=== PATIENT | male | born 1985 | race Hispanic/Latino ===

== ENCOUNTER 2023-03-11 22:30 | Inpatient (IN) | payer OTHER ==
[~2023-03-11] VITALS: Ht 177.8 cm; Wt 85.7 kg
[2023-03-11 23:06] LABS: EOSINOPHILS % (AUTO) 1.7 % (0.0-8.0); LYMPHOCYTES % (AUTO) 24.3 % (21.0-51.0); MEAN CORPUSCULAR HEMOGLOBIN 18.2 pg (27.0-33.0); MEAN CORPUSCULAR HGB CONC 27.9 g/dL (32.0-36.0); MEAN CORPUSCULAR VOLUME 65.2 fL (79-99); MONOCYTES % (AUTO) 12.2 % (3.0-13.0); NEUTROPHILS % (AUTO) 60.3 % (40.0-77.0); NUCLEATED RED BLOOD CELLS 0.5 % (0.0-0.19); PLATELET COUNT (AUTO) 369 K/uL (130-400); RED BLOOD CELL COUNT(AUTO) 3.13 MIL/uL (4.50-6.20); RED CELL DISTRIBUTION WIDTH 19.8 % (11.0-15.5); WHITE BLOOD COUNT (AUTO) 9.4 K/uL (4.8-10.8)
[2023-03-11 23:11] LABS: APPEARANCE,URINE CLEAR (CLEAR); BILIRUBIN,URINE NEGATIVE (NEGATIVE); COLOR,URINE YELLOW (YELLOW); GLUCOSE, URINE (UA) NEGATIVE (NEGATIVE); KETONES,URINE NEGATIVE (NEGATIVE); LEUKOCYTE ESTERASE ,URINE NEGATIVE Leu/uL (NEGATIVE); NITRATE,URINE NEGATIVE (NEGATIVE); OCCULT BLOOD,URINE NEGATIVE (NEGATIVE); PROTEIN,URINE NEGATIVE (NEGATIVE); UROBILINOGEN,URINE 0.2 mg/dL (0.2-1.0)
[2023-03-11 23:14] LABS: CREATININE 0.8 mg/dL (0.5-1.5)
[2023-03-11 23:17] LABS: HEMATOCRIT 20.4 % (42-54)
[2023-03-11 23:18] LABS: ALBUMIN 3.4 g/dL (3.5-5.0); TOTAL PROTEIN, SERUM 7.5 g/dL (6.0-8.3)
[2023-03-11 23:52] LABS: INR 1.24 (0.85-1.15); PROTHROMBIN TIME 13.4 SEC (9.6-11.6)
[2023-03-11 23:53] LABS: PARTIAL THROMBOPLASTIN TIME 29.3 SEC (26.3-35.5)
[2023-03-12] MEDS ORDERED: MAGNESIUM 2GM PREMIX 50ML 50 ML IV PRN
[2023-03-12] MEDS ORDERED: PANTOPRAZOLE 40 MG/VIAL IVP ONE
[2023-03-12] MEDS ORDERED: ACETAMINOPHEN 325 MG TAB PO PRN ×2
[2023-03-12] MEDS ORDERED: POTASSIUM CHLORIDE 20MEQ/100ML 100 ML IV PRN
[2023-03-12] MEDS ORDERED: OCTREOTIDE ACETATE 100 MCG/ML AMP IV ONE
[2023-03-12] MEDS ORDERED: POTASSIUM BICARB/CIT AC 25 MEQ TABLET.EFF PO ONE
[2023-03-12] MEDS ORDERED: MORPHINE 2 MG SYG IV PRN
[2023-03-12] MEDS ORDERED: ONDANSETRON 4MG INJ IV PRN
[2023-03-12 00:01] LABS: PLATELET MORPHOLOGY LARGE PLTS PRESENT
[2023-03-12] MEDS: 0.9%NACL 1000ML 1,000 ML IV SCH ×2 (00:48→17:08)
[2023-03-12] MEDS ORDERED: OCTREOTIDE ACETATE 200 MCG/ML 5 ML VIAL ONE (00:51)
[2023-03-12] MEDS: OCTREOTIDE ACETATE 1,250 MCG in 0.9% NACL 250ML 250 ML IV SCH (01:27)
[2023-03-12 05:48] LABS: BASOPHILS % (AUTO) 1.1 % (0.0-5.0); HEMATOCRIT 21.9 % (42-54); LYMPHOCYTES % (AUTO) 24.2 % (21.0-51.0); MEAN CORPUSCULAR HEMOGLOBIN 19.9 pg (27.0-33.0); MEAN CORPUSCULAR HGB CONC 29.2 g/dL (32.0-36.0); MEAN CORPUSCULAR VOLUME 68.2 fL (79-99); MONOCYTES % (AUTO) 13.4 % (3.0-13.0); NEUTROPHILS % (AUTO) 58.9 % (40.0-77.0); NUCLEATED RED BLOOD CELLS 0.2 % (0.0-0.19); PLATELET COUNT (AUTO) 343 K/uL (130-400); RED BLOOD CELL COUNT(AUTO) 3.21 MIL/uL (4.50-6.20); RED CELL DISTRIBUTION WIDTH 22.3 % (11.0-15.5); WHITE BLOOD COUNT (AUTO) 8.5 K/uL (4.8-10.8)
[2023-03-12 06:01] LABS: CREATININE 0.7 mg/dL (0.5-1.5); MAGNESIUM 1.1 mg/dL (1.80-2.40); PHOSPHORUS 4.2 mg/dL (2.5-4.9); POTASSIUM 4.2 mmol/L (3.5-5.1)
[2023-03-12 06:02] LABS: INR 1.27 (0.85-1.15); PROTHROMBIN TIME 13.7 SEC (9.6-11.6)
[2023-03-12] MEDS ORDERED: PANTOPRAZOLE 40 MG/VIAL IVP SCH (09:00)
[2023-03-12 12:49] LABS: HEMATOCRIT 23.8 % (42-54)
[2023-03-12] MEDS: PANTOPRAZOLE 40MG INJ 80 MG in 0.9%NACL 100ML 100 ML IVP SCH (15:28)
[2023-03-12] MEDS: AZITHROMYCIN 500MG+NS 250ML IVPB SCH (15:35)
[2023-03-12 17:57] LABS: HEMATOCRIT 24.2 % (42-54)
[2023-03-12] MEDS ORDERED: LACTULOSE 20 GM/30 ML UDCUP PO ONE (19:30)
[2023-03-12 21:30] VITALS: BP 129/81
[2023-03-12] MEDS: MAGNESIUM 2GM PREMIX 50ML 50 ML IV SCH (21:42)
[2023-03-12] MEDS ORDERED: OMEP20TA20 PO (22:00)
[2023-03-12 22:38] LABS: HEMATOCRIT 25.3 % (42-54)
[2023-03-12 23:36] VITALS: BP 127/83
[2023-03-13] VITALS (21 sets, daily range): BP systolic 122–145; BP diastolic 62–98
[2023-03-13] MEDS ORDERED: PEG 3350/NA SULF,BICARB,CL/KCL 4000 ML SOLN PO ONE (00:01)
[2023-03-13] MEDS: PANTOPRAZOLE 40MG INJ 80 MG in 0.9%NACL 100ML 100 ML IVP SCH ×3 (01:33→20:22)
[2023-03-13 05:11] LABS: HEMATOCRIT 23.3 % (42-54); MEAN CORPUSCULAR HEMOGLOBIN 20.5 pg (27.0-33.0); MEAN CORPUSCULAR HGB CONC 29.6 g/dL (32.0-36.0); MEAN CORPUSCULAR VOLUME 69.1 fL (79-99); NUCLEATED RED BLOOD CELLS 0.3 % (0.0-0.19); RED BLOOD CELL COUNT(AUTO) 3.37 MIL/uL (4.50-6.20); RED CELL DISTRIBUTION WIDTH 22.1 % (11.0-15.5)
[2023-03-13 05:25] LABS: CREATININE 0.7 mg/dL (0.5-1.5); MAGNESIUM 1.9 mg/dL (1.80-2.40); POTASSIUM 3.6 mmol/L (3.5-5.1); TOTAL PROTEIN, SERUM 6.7 g/dL (6.0-8.3)
[2023-03-13 08:14] LABS: HEMATOCRIT 23.8 % (42-54)
[2023-03-13] MEDS: 0.9%NACL 1000ML 1,000 ML IV SCH (09:36)
[2023-03-13] MEDS ORDERED: PROPOFOL 10 MG/ML 20ML VIAL IV ONE ×2 (12:45)
[2023-03-13] MEDS ORDERED: FENTANYL CITRATE PF 50 MCG/1 ML 2ML VIAL ONE (12:45)
[2023-03-13] MEDS ORDERED: LIDOCAINE PF 100MG/5ML (2%) SYRINGE 5ML ONE (12:46)
[2023-03-13 15:49] LABS: HEMATOCRIT 25.3 % (42-54)
[2023-03-13] MEDS: AZITHROMYCIN 500MG+NS 250ML IVPB SCH (16:01)
[2023-03-13] MEDS: HYDROCORTISONE 25 MG SUPPOSITORY PR SCH (22:00)
[2023-03-13] MEDS: MORPHINE 4 MG SYG IV PRN (22:06)
[2023-03-13] MEDS: OCTREOTIDE ACETATE 1,250 MCG in 0.9% NACL 250ML 250 ML IV SCH (22:06)
[2023-03-14] MEDS: 0.9%NACL 1000ML 1,000 ML IV SCH (02:00)
[2023-03-14] MEDS: MORPHINE 4 MG SYG IV PRN (03:47)
[2023-03-14] MEDS: PANTOPRAZOLE 40MG INJ 80 MG in 0.9%NACL 100ML 100 ML IVP SCH (03:47)
[2023-03-14 04:18] VITALS: BP 142/102
[2023-03-14 04:48] LABS: EOSINOPHILS % (AUTO) 1.9 % (0.0-8.0); HEMATOCRIT 25.4 % (42-54); LYMPHOCYTES % (AUTO) 17.9 % (21.0-51.0); MEAN CORPUSCULAR HEMOGLOBIN 20.3 pg (27.0-33.0); MEAN CORPUSCULAR HGB CONC 29.1 g/dL (32.0-36.0); MEAN CORPUSCULAR VOLUME 69.6 fL (79-99); MONOCYTES % (AUTO) 10.4 % (3.0-13.0); NEUTROPHILS % (AUTO) 68.4 % (40.0-77.0); PLATELET COUNT (AUTO) 349 K/uL (130-400); RED BLOOD CELL COUNT(AUTO) 3.65 MIL/uL (4.50-6.20); RED CELL DISTRIBUTION WIDTH 22.8 % (11.0-15.5); WHITE BLOOD COUNT (AUTO) 9.8 K/uL (4.8-10.8)
[2023-03-14 05:12] LABS: CREATININE 0.6 mg/dL (0.5-1.5); MAGNESIUM 1.8 mg/dL (1.80-2.40); PHOSPHORUS 3.6 mg/dL (2.5-4.9); POTASSIUM 3.3 mmol/L (3.5-5.1); TOTAL PROTEIN, SERUM 6.6 g/dL (6.0-8.3)
[2023-03-14] MEDS: MAGNESIUM 2GM PREMIX 50ML 50 ML IV SCH (05:48)
[2023-03-14] MEDS: KCL 20 MEQ ERTAB PO PRN ×3 (05:48→11:44)
[2023-03-14] MEDS ORDERED: POTASSIUM CHLORIDE 10% ELIXIR 20 MEQ/15 ML UDCUP PO PRN (06:00)
[2023-03-14] MEDS ORDERED: POTASSIUM CHLORIDE 20MEQ/100ML 100 ML IV PRN (06:00)
[2023-03-14 08:00] VITALS: BP 144/92
[2023-03-14] MEDS: PANTOPRAZOLE 40 MG TAB DR PO SCH (09:25)
[2023-03-14] MEDS: HYDROCORTISONE 25 MG SUPPOSITORY PR SCH ×2 (09:25→20:55)
[2023-03-14] MEDS ORDERED: LIDOCAINE HCL 2% VISCOUS 15 ML UDCUP PO PRN (11:00)
[2023-03-14] MEDS ORDERED: BENZOCAINE/MENTH/CETYLPYRD CL 1 EACH LOZENGE MM PRN (11:00)
[2023-03-14 12:00] VITALS: BP 129/89
[2023-03-14] MEDS: AZITHROMYCIN 500MG+NS 250ML IVPB SCH (15:17)
[2023-03-14 16:00] VITALS: BP 123/85
[2023-03-14 19:43] VITALS: BP 135/95
[2023-03-14 23:19] VITALS: BP 133/87
[2023-03-15 03:42] VITALS: BP 109/61
[2023-03-15 05:59] LABS: EOSINOPHILS % (AUTO) 1.7 % (0.0-8.0); HEMATOCRIT 27.7 % (42-54); LYMPHOCYTES % (AUTO) 19.5 % (21.0-51.0); MEAN CORPUSCULAR HEMOGLOBIN 20.3 pg (27.0-33.0); MEAN CORPUSCULAR HGB CONC 28.5 g/dL (32.0-36.0); MEAN CORPUSCULAR VOLUME 71.2 fL (79-99); MONOCYTES % (AUTO) 9.7 % (3.0-13.0); NEUTROPHILS % (AUTO) 67.6 % (40.0-77.0); NUCLEATED RED BLOOD CELLS 0.2 % (0.0-0.19); PLATELET COUNT (AUTO) 455 K/uL (130-400); RED BLOOD CELL COUNT(AUTO) 3.89 MIL/uL (4.50-6.20); RED CELL DISTRIBUTION WIDTH 23.9 % (11.0-15.5); WHITE BLOOD COUNT (AUTO) 12.6 K/uL (4.8-10.8)
[2023-03-15 06:22] LABS: ALBUMIN 3.3 g/dL (3.5-5.0); CREATININE 0.7 mg/dL (0.5-1.5); POTASSIUM 4.2 mmol/L (3.5-5.1); TOTAL PROTEIN, SERUM 7.3 g/dL (6.0-8.3)
[2023-03-15 08:00] VITALS: BP 132/85
[2023-03-15] MEDS: HYDROCORTISONE 25 MG SUPPOSITORY PR SCH ×2 (09:47→19:50)
[2023-03-15] MEDS: PANTOPRAZOLE 40 MG TAB DR PO SCH (09:47)
[2023-03-15 12:00] VITALS: BP 126/79
[2023-03-15] MEDS: AZITHROMYCIN 500MG+NS 250ML IVPB SCH (15:08)
[2023-03-15 15:59] VITALS: BP 124/73
[2023-03-15 20:00] VITALS: BP 117/71
[2023-03-16] VITALS: BP 120/75
[2023-03-16 04:00] VITALS: BP 118/76
[2023-03-16 04:43] LABS: BASOPHILS % (AUTO) 0.9 % (0.0-5.0); EOSINOPHILS % (AUTO) 1.1 % (0.0-8.0); LYMPHOCYTES % (AUTO) 16.5 % (21.0-51.0); MEAN CORPUSCULAR HEMOGLOBIN 20.3 pg (27.0-33.0); MEAN CORPUSCULAR HGB CONC 28.5 g/dL (32.0-36.0); MEAN CORPUSCULAR VOLUME 71.1 fL (79-99); MONOCYTES % (AUTO) 9.6 % (3.0-13.0); NEUTROPHILS % (AUTO) 71.5 % (40.0-77.0); PLATELET COUNT (AUTO) 475 K/uL (130-400); RED CELL DISTRIBUTION WIDTH 23.9 % (11.0-15.5); WHITE BLOOD COUNT (AUTO) 12.6 K/uL (4.8-10.8)
[2023-03-16 05:13] LABS: ALBUMIN 3.3 g/dL (3.5-5.0); CREATININE 0.7 mg/dL (0.5-1.5); POTASSIUM 3.5 mmol/L (3.5-5.1); TOTAL PROTEIN, SERUM 7.4 g/dL (6.0-8.3)
[2023-03-16 08:00] VITALS: BP 122/73
[2023-03-16] MEDS: HYDROCORTISONE 25 MG SUPPOSITORY PR SCH ×2 (09:19→21:30)
[2023-03-16] MEDS: PANTOPRAZOLE 40 MG TAB DR PO SCH (09:19)
[2023-03-16 12:00] VITALS: BP 121/70
[2023-03-16] MEDS: KCL 20 MEQ ERTAB PO PRN ×2 (14:14→16:54)
[2023-03-16] MEDS: AZITHROMYCIN 500MG+NS 250ML IVPB SCH (14:14)
[2023-03-16 16:00] VITALS: BP 130/71
[2023-03-16 20:00] VITALS: BP 127/77
[2023-03-17] VITALS (7 sets, daily range): BP systolic 119–132; BP diastolic 64–80
[2023-03-17 08:44] LABS: BASOPHILS % (AUTO) 0.6 % (0.0-5.0); EOSINOPHILS % (AUTO) 0.7 % (0.0-8.0); HEMATOCRIT 27.2 % (42-54); LYMPHOCYTES % (AUTO) 13.3 % (21.0-51.0); MEAN CORPUSCULAR HEMOGLOBIN 20.2 pg (27.0-33.0); MEAN CORPUSCULAR VOLUME 69.6 fL (79-99); MONOCYTES % (AUTO) 5.3 % (3.0-13.0); NEUTROPHILS % (AUTO) 79.6 % (40.0-77.0); PLATELET COUNT (AUTO) 513 K/uL (130-400); RED BLOOD CELL COUNT(AUTO) 3.91 MIL/uL (4.50-6.20); RED CELL DISTRIBUTION WIDTH 23.9 % (11.0-15.5); WHITE BLOOD COUNT (AUTO) 14.1 K/uL (4.8-10.8)
[2023-03-17 09:09] LABS: ALBUMIN 3.4 g/dL (3.5-5.0); CREATININE 0.6 mg/dL (0.5-1.5); MAGNESIUM 1.9 mg/dL (1.80-2.40); POTASSIUM 4.1 mmol/L (3.5-5.1); TOTAL PROTEIN, SERUM 7.7 g/dL (6.0-8.3)
[2023-03-17] MEDS: PANTOPRAZOLE 40 MG TAB DR PO SCH (09:29)
[2023-03-17] MEDS: HYDROCORTISONE 25 MG SUPPOSITORY PR SCH ×2 (09:29→20:16)
[2023-03-17] MEDS ORDERED: CEFTRIAXONE 2GM VIAL IVPB SCH (12:00)
[2023-03-17] MEDS ORDERED: CEFTRIAXONE 1G VIAL IVPB SCH (12:30)
[2023-03-17] MEDS: AZITHROMYCIN 500MG+NS 250ML IVPB SCH (14:45)
[2023-03-18 03:45] VITALS: BP 114/72
[2023-03-18 04:34] LABS: HEMATOCRIT 25.7 % (42-54); MEAN CORPUSCULAR HEMOGLOBIN 20.2 pg (27.0-33.0); MEAN CORPUSCULAR HGB CONC 29.2 g/dL (32.0-36.0); MEAN CORPUSCULAR VOLUME 69.3 fL (79-99); RED BLOOD CELL COUNT(AUTO) 3.71 MIL/uL (4.50-6.20); RED CELL DISTRIBUTION WIDTH 23.6 % (11.0-15.5); WHITE BLOOD COUNT (AUTO) 14.4 K/uL (4.8-10.8)
[2023-03-18 04:47] LABS: ALBUMIN 3.3 g/dL (3.5-5.0); BILIRUBIN,DIRECT 0.7 mg/dL (0.0-0.3); TOTAL PROTEIN, SERUM 7.5 g/dL (6.0-8.3)
[2023-03-18 07:49] VITALS: BP 120/75
[2023-03-18] MEDS: PANTOPRAZOLE 40 MG TAB DR PO SCH (08:37)
[2023-03-18] MEDS: HYDROCORTISONE 25 MG SUPPOSITORY PR SCH (08:37)
[2023-03-18 11:34] VITALS: BP 129/77
[2023-03-18] MEDS ORDERED: LEVO-70 PO (12:50)
[2023-03-18] MEDS ORDERED: PANT40TA54 PO (12:50)
== END 2023-03-18 13:40 | disposition home or self-care (01) | DRG 368 ==
LOC: EDH 22:30 → EDHIP 22:31 → 4DH 03-12 21:30
PROVIDERS: ADMIT Internal Medicine; ATTEND Internal Medicine
PROC: 30233N1 Transfusion of Nonautologous Red Blood Cells into Peripheral Vein, Percutaneous Approach (ICD-10-PCS; 2023-03-12)
PROC: 0DBP8ZZ Excision of Rectum, Via Natural or Artificial Opening Endoscopic (ICD-10-PCS; principal; 2023-03-13)
PROC: 06L38CZ Occlusion of Esophageal Vein with Extraluminal Device, Via Natural or Artificial Opening Endoscopic (ICD-10-PCS; 2023-03-13)
DX: K21.01 Gastro-esophageal reflux disease with esophagitis, with bleeding (principal); K29.01 Acute gastritis with bleeding; D62 Acute posthemorrhagic anemia; K76.6 Portal hypertension; Z20.822 Contact with and (suspected) exposure to COVID-19; R18.8 Other ascites; I85.10 Secondary esophageal varices without bleeding; K31.89 Other diseases of stomach and duodenum; F10.21 Alcohol dependence, in remission; K76.0 Fatty (change of) liver, not elsewhere classified; K40.90 Unilateral inguinal hernia, without obstruction or gangrene, not specified as recurrent; K64.8 Other hemorrhoids; E87.6 Hypokalemia; K40.20 Bilateral inguinal hernia, without obstruction or gangrene, not specified as recurrent; B19.20 Unspecified viral hepatitis C without hepatic coma; Z80.7 Family history of other malignant neoplasms of lymphoid, hematopoietic and related tissues; Z82.0 Family history of epilepsy and other diseases of the nervous system; Z83.3 Family history of diabetes mellitus
CPT/HCPCS: 36415; 43244; 45380; 74176; 76700; 76870; 80048; 80053; 80076; 81003; 82270; 83690; 83735; 84100; 85007; 85014; 85018; 85025; 85027; 85610; 85730; 86850; 86900; 86901; 86923; 87040; 87520; 87522; 87635; 93005; A4606; C9113; G0378; J0456; J0696; J2001; J2270; J2354; J2704; J3010; J3475; J7030; J7050; P9016

== ENCOUNTER 2023-07-09 23:55 | Emergency (ER) | payer OTHER ==
[~2023-07-09] VITALS: Ht 177.8 cm; Wt 93.0 kg
[~2023-07-09 23:55] MED LIST: LEVO-70 PO; PANT40TA54 PO
[2023-07-09 23:56] VITALS: BP 132/83; PULSE 74; RESP 20
== END 2023-07-10 01:30 | disposition left against medical advice (07) ==
LOC: EDH 23:55
DX: K74.60 Unspecified cirrhosis of liver (principal); F10.20 Alcohol dependence, uncomplicated; F17.200 Nicotine dependence, unspecified, uncomplicated; I10 Essential (primary) hypertension; Z79.899 Other long term (current) drug therapy
CPT/HCPCS: 99281

== ENCOUNTER 2025-10-30 10:36 | Emergency (ER) | payer SELFPAY ==
[~2025-10-30] VITALS: Ht 177.8 cm; Wt 83.9 kg
[2025-10-30 11:43] LABS: IMMATURE GRANULOCYTE ABSOLUTE 0.00 K/uL (0-1); NUCLEATED RED BLOOD CELLS 0.0 % (0.0-0.19); PLATELET COUNT (AUTO) 52 K/uL (130-400); RED BLOOD CELL COUNT(AUTO) 4.73 MIL/uL (4.50-6.20); RED CELL DISTRIBUTION WIDTH 14.9 % (11.0-15.5); WHITE BLOOD COUNT (AUTO) 3.7 K/uL (4.8-10.8)
[2025-10-30 11:53] LABS: CREATINE KINASE, TOTAL 160.0 U/L (21-232); CREATININE 0.6 mg/dL (0.5-1.3); GLOMERULAR FILTR. RATE CALC 127.0 mL/min (>90); GLUCOSE,RANDOM 114.0 mg/dL (70-105); SODIUM SERUM 139.0 mmol/L (136-145); UREA NITROGEN, BLOOD 1.0 mg/dL (7-18)
[2025-10-30 11:58] LABS: AMPHET/METH SCREEN,URINE NEGATIVE (NEGATIVE); BARBITURATE SCREEN, URINE NEGATIVE (NEGATIVE); CANNABINOID SCREEN,URINE POSITIVE (NEGATIVE); COCAINE SCREEN,URINE NEGATIVE (NEGATIVE)
--- NOTE | 2025-10-30 12:00 | HMCIMG ---
EXAM: CR CHEST, 1 VIEW CLINICAL HISTORY: Syncope. COMPARISON: None provided. FINDINGS: LUNGS: No focal mass, lobar consolidation, or other acute pulmonary parenchymal abnormality is identified. PLEURAL SPACES: No pleural effusion or pneumothorax. MEDIASTINUM: Cardiac size and mediastinal contours are within normal limits. BONES: Displaced fractures of the left third, fourth, fifth, and sixth ribs are identified. These are presumed chronic in nature. Fixation hardware is present involving the left seventh and eighth ribs. No aggressive-appearing osseous lesion is seen.IMPRESSION: 1. No acute cardiopulmonary findings. 2. Displaced fractures of left 3rd, 4th, 5th, and 6th ribs, presumed chronic. Fixation hardware in left 7th and 8th ribs. /[place]
[2025-10-30 12:03] LABS: ALCOHOL, BLOOD 365.0 mg/dL (0-10)
[2025-10-30 12:18] LABS: PLATELET MORPHOLOGY COMMENT DECREASED
[2025-10-30] MEDS: 0.9%NACL 1000ML 1,000 ML IV ONE (12:47)
--- NOTE | 2025-10-30 13:13 | HMCIMG ---
EXAM: CT Head and Facial bones Without IV contrast. CLINICAL HISTORY: head injury TECHNIQUE: Axial computed tomography images were acquired of the head/brain, and of the facial bones, without intravenous contrast. Sagittal and coronal reformatted images were obtained of the facial bones. COMPARISON: None provided. FINDINGS: BRAIN No evidence of acute hemorrhage. No mass lesion. No CT evidence for acute territorial infarct. No midline shift or extra-axial collections. VENTRICLES: No hydrocephalus. ORBITS: The orbits are unremarkable. SINUSES AND MASTOIDS: The paranasal sinuses and mastoid air cells are clear. SOFT TISSUES: Right supra orbital soft tissue hematoma. The retro-orbital fat is preserved. BONES: No acute fracture is evident on images of the facial bones, or the head. MISCELLANEOUS: There is swelling of the upper lip on the left IMPRESSION: Right supra orbital soft tissue hematoma. The retro-orbital fat is preserved. There is swelling of the upper lip on the left No evidence of sinus fracture. /[place]
[2025-10-30] MEDS: MAGNESIUM 2GM PREMIX 50ML 50 ML IV STA (13:36)
[2025-10-30 14:00] VITALS: BP 137/76; PULSE 85; RESP 18; TEMP 97.9; O2SAT 97
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
--- NOTE | 2025-10-30 14:39 | NUR ---
pt left ama eloped from hallway bed pt was not medically cleared by er physician.
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
--- NOTE | 2025-10-30 18:07 | EKG ---
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 : 1985 Requested By: CRISTIAN DAVALOS Order Number: [id number] Reading MD: Isidro Chowdary Measurements Intervals [place] Rate: 74 P: 0 DE: 66 QRS: 13 QRSD: 116 T: 59 QT: 393 QTc: 438 Interpretive Statements Sinus rhythm Nonspecific intraventricular conduction delay Low voltage, extremity leads ST elev, probable normal early repol pattern Compared to ECG 03/12/2023 05:19:17 Intraventricular conduction delay now present ST (T wave) deviation now present Electronically Signed On 10-30-2025 21:53:02 TELEVISION REPORTER by Isidro Chowdary Please click the below link to view image of tracing.
== END 2025-10-30 14:45 | disposition left against medical advice (07) ==
LOC: EDH 10:36
DX: S00.12XA Contusion of left eyelid and periocular area, initial encounter (principal); E87.6 Hypokalemia; F10.129 Alcohol abuse with intoxication, unspecified; R55 Syncope and collapse; F17.200 Nicotine dependence, unspecified, uncomplicated; Z79.899 Other long term (current) drug therapy; W18.39XA Other fall on same level, initial encounter; Y93.89 Activity, other specified; Y92.89 Other specified places as the place of occurrence of the external cause; Y99.8 Other external cause status; Y90.8 Blood alcohol level of 240 mg/100 ml or more
CPT/HCPCS: 99285; 70450; 96365; 71045; 96375; 82550; 84484; 80048; 80305; 85025; 85378; 36415; 70486; 96368; 93005; J3475; J7030; J2405; J3480